=== PATIENT | female | born 1965 | race American Indian/Alaskan Native ===

== ENCOUNTER 2016-10-29 08:20 | Outpatient (CLI) | payer MEDICARE ==
[2016-10-29] MEDS ORDERED: XYLOCAINE TOPICAL 4% TP ONE ×2 (08:41→15:00)
[2016-10-29] MEDS ORDERED: SANTYL TP ONE ×2 (10:40→15:00)
== END 2016-10-29 08:21 | disposition home or self-care (01) ==
LOC: WOUND 08:20
PROVIDERS: ATTEND Podiatrist
DX: E11.622 Type 2 diabetes mellitus with other skin ulcer (principal); L97.912 Non-pressure chronic ulcer of unspecified part of right lower leg with fat layer exposed; L97.422 Non-pressure chronic ulcer of left heel and midfoot with fat layer exposed; E11.40 Type 2 diabetes mellitus with diabetic neuropathy, unspecified; I10 Essential (primary) hypertension; G83.9 Paralytic syndrome, unspecified; F17.210 Nicotine dependence, cigarettes, uncomplicated; Z86.73 Personal history of transient ischemic attack (TIA), and cerebral infarction without residual deficits
CPT/HCPCS: 11042; 11045; G0463; 99213

== ENCOUNTER 2016-11-05 10:18 | Outpatient (CLI) | payer MEDICARE ==
[2016-11-05] MEDS ORDERED: XYLOCAINE 1%/ EPI 1:100,000 INFILTRATI ONE (10:56)
[2016-11-05] MEDS ORDERED: XYLOCAINE TOPICAL 4% TP ONE ×2 (10:56→11:11)
[2016-11-05] MEDS ORDERED: SANTYL TP ONE (11:53)
[2016-11-05] MEDS ORDERED: NACL 0.9% IR PRN (16:07)
== END 2016-11-05 10:19 | disposition home or self-care (01) ==
LOC: WOUND 10:18
PROVIDERS: ATTEND Podiatrist
DX: E11.622 Type 2 diabetes mellitus with other skin ulcer (principal); L97.812 Non-pressure chronic ulcer of other part of right lower leg with fat layer exposed; E11.621 Type 2 diabetes mellitus with foot ulcer; L97.422 Non-pressure chronic ulcer of left heel and midfoot with fat layer exposed; E11.40 Type 2 diabetes mellitus with diabetic neuropathy, unspecified; I10 Essential (primary) hypertension; G83.9 Paralytic syndrome, unspecified; F17.210 Nicotine dependence, cigarettes, uncomplicated; Z86.73 Personal history of transient ischemic attack (TIA), and cerebral infarction without residual deficits

== ENCOUNTER → 2016-11-12 | Emergency (ER) | payer MEDICARE ==
[~2016-11-12] MED LIST: SANTYL TP SCH; XYLOCAINE TOPICAL 4% TP ONE
== END ==
LOC: WOUND 10:39
DX: Z53.21 Procedure and treatment not carried out due to patient leaving prior to being seen by health care provider (principal)

== ENCOUNTER 2016-11-19 11:50 | Outpatient (CLI) | payer MEDICARE ==
[2016-11-19] MEDS ORDERED: XYLOCAINE TOPICAL 4% TP ONE ×2 (12:50→15:23)
[2016-11-19] MEDS ORDERED: XYLOCAINE TOPICAL 2% ONE (13:20)
[2016-11-19] MEDS ORDERED: SANTYL TP ONE (13:21)
[2016-11-19] MEDS ORDERED: XYLOCAINE TOPICAL 2% TP ONE (15:29)
== END 2016-11-19 11:51 | disposition home or self-care (01) ==
LOC: WOUND 11:50
PROVIDERS: ATTEND Podiatrist
DX: E11.621 Type 2 diabetes mellitus with foot ulcer (principal); L97.422 Non-pressure chronic ulcer of left heel and midfoot with fat layer exposed; E11.622 Type 2 diabetes mellitus with other skin ulcer; L97.812 Non-pressure chronic ulcer of other part of right lower leg with fat layer exposed; E11.40 Type 2 diabetes mellitus with diabetic neuropathy, unspecified; G83.9 Paralytic syndrome, unspecified; I10 Essential (primary) hypertension; F17.210 Nicotine dependence, cigarettes, uncomplicated; Z86.73 Personal history of transient ischemic attack (TIA), and cerebral infarction without residual deficits
CPT/HCPCS: 97607

== ENCOUNTER 2016-11-24 16:11 | Emergency (ER) | payer MEDICARE ==
[2016-11-24] MEDS ORDERED: D50W (25GM) IV ONE ×2 (16:18→16:27)
[2016-11-24 16:27] VITALS: BP 137/57
--- NOTE | 2016-11-24 17:25 | Emergency Department Report ---
ED General Adult HPI - General Chief complaint: Hypoglycemia Stated complaint: HYPERGLYCEMIA Time Seen by Provider: 11/24/16 16:44 Source: patient, EMS (ems notes not available at time of chart dictation), RN notes reviewed Mode of arrival: Stretcher Limitations: Physical Limitation, Other (patient is a poor historian) - History of Present Illness Initial comments: This is a 51-year-old female. She is previously unknown to me. Has a past medical history of hypertension, diabetes, migraine, seizure disorder, CK D stage III, dyslipidemia, CVA with residual left-sided hemiparesis, chronic dysarthria, for PEG tube placement. Patient is brought to the hospital by EMS. As per EMS documentation, they received a call for the patient laying supine on her bed unconscious with a GCS of 8. No indication of trauma. Blood sugar level in the field was 33. EMS unable to establish IV access. Upon arrival to the ER, patient is found to be hypoglycemic again. The nurse establish IV access, gave an amp of D50. Patient now talking, denies all complaints. As per verbal report from EMS to nurse, the patient's indicated that the patient had a blood sugar over 300 this morning, gave 30 units of insulin. EMS indicated that the patient has not been eating since then. The patient denies headache, neck pain, chest pain, abdominal pain and shortness of breath. Patient cannot recall list of medications. The person who lives with the patient is Mr. Ortiz Melendez; [phone]. Currently, the nurse is attempting to contact him to obtain a medication list and to obtaining collateral history. -: Gradual Severity scale (0 -10): 0 Consistency: now resolved Improves with: medication Worsens with: other (not eating) Associated Symptoms: confusion (now resolved) - Related Data Home Medications Medication Instructions Recorded Confirmed Last Taken Amlodipine Besylate [Norvasc] 10 mg PO DAILY 07/17/14 11/24/16 09/17/14 10 Pregabalin [Lyrica] 150 mg PO BID 07/17/14 11/24/16 09/19/14 75 levETIRAcetam [Keppra XR TAB] 500 mg PO Q12HR 07/17/14 11/24/16 09/19/14 500 Aspirin [Aspirin TAB] 325 mg PO DAILY 03/29/15 11/24/16 Unknown Ascorbic Acid [Vitamin C] 500 mg PO QDAY 11/24/16 11/24/16 Unknown AtorvaSTATin [Lipitor] 20 mg PO QHS 11/24/16 11/24/16 Unknown Bumetanide [Bumex] 1 mg PO BID 11/24/16 11/24/16 Unknown Carvedilol [Coreg] 12.5 mg PO BID 11/24/16 11/24/16 Unknown Ferrous Sulfate [Feosol] 325 mg PO QDAY 11/24/16 11/24/16 Unknown Insulin Aspart Prot/Aspart 25 units SQ QAM 11/24/16 11/24/16 Unknown [Novolog Mix 70/30] Insulin Glargine [Lantus] 30 unit SUB-Q QHS 11/24/16 11/24/16 Unknown Sevelamer Carbonate [Renvela] 800 mg PO TIDWM 11/24/16 11/24/16 Unknown Allergies Allergy/AdvReac Type Severity Reaction Status Date / Time No Known Allergies Allergy Verified 09/25/13 14:52 ED Review of Systems ROS: Stated complaint: HYPERGLYCEMIA Other details as noted in HPI Constitutional: malaise. denies: fever Eyes: denies: eye discharge ENT: denies: epistaxis Respiratory: denies: cough Cardiovascular: denies: chest pain Gastrointestinal: denies: abdominal pain Genitourinary: denies: dysuria Musculoskeletal: as per HPI Skin: as per HPI Neurological: weakness (chronic) Psychiatric: as per HPI Hematological/Lymphatic: as per HPI ED Past Medical Hx - Past Medical History Previous Medical History?: Yes Hx Hypertension: Yes Hx CVA: Yes Hx Congestive Heart Failure: No Hx Diabetes: Yes Hx Headaches / Migraines: Yes Hx Seizures: Yes Hx Asthma: No - Surgical History Past Surgical History?: Yes Additional Surgical History: Gastric feeding tube - Social History Smoking Status: Unknown if ever smoked Substance Use Type: None - Medications Home Medications: Home Medications Medication Instructions Recorded Confirmed Last Taken Type Amlodipine Besylate [Norvasc] 10 mg PO DAILY 07/17/14 11/24/16 09/17/14 History 10 Pregabalin [Lyrica] 150 mg PO BID 07/17/14 11/24/16 09/19/14 History 75 levETIRAcetam [Keppra XR TAB] 500 mg PO Q12HR 07/17/14 11/24/1615 History 500 Aspirin [Aspirin TAB] 325 mg PO DAILY 03/29/15 11/24/16 Unknown History Ascorbic Acid [Vitamin C] 500 mg PO QDAY 11/24/16 11/24/16 Unknown History AtorvaSTATin [Lipitor] 20 mg PO QHS 11/24/16 11/24/16 Unknown History Bumetanide [Bumex] 1 mg PO BID 11/24/16 11/24/16 Unknown History Carvedilol [Coreg] 12.5 mg PO BID 11/24/16 11/24/16 Unknown History Ferrous Sulfate [Feosol] 325 mg PO QDAY 11/24/16 11/24/16 Unknown History Insulin Aspart Prot/Aspart 25 units SQ QAM 11/24/16 11/24/16 Unknown History [Novolog Mix 70/30] Insulin Glargine [Lantus] 30 unit SUB-Q QHS 11/24/16 11/24/16 Unknown History Sevelamer Carbonate [Renvela] 800 mg PO TIDWM 11/24/16 11/24/16 Unknown History ED Physical Exam - General Limitations: Physical Limitation (patient has chronic hemiparesis left upper extremity, left lower extremity) General appearance: alert, in no apparent distress, obese, other (patient is alert to name. Follows commands.) - Head Head exam: Present: atraumatic, normocephalic - Eye Eye exam: Present: normal appearance, EOMI - ENT ENT exam: Present: normal exam, normal orophraynx, mucous membranes moist, normal external ear exam - Neck Neck exam: Present: normal inspection, full ROM. Absent: tenderness, meningismus - Respiratory Respiratory exam: Present: normal lung sounds bilaterally. Absent: respiratory distress, wheezes, rales, rhonchi, stridor, decreased breath sounds - Cardiovascular Cardiovascular Exam: Present: regular rate, normal rhythm, normal heart sounds. Absent: bradycardia, tachycardia, irregular rhythm, systolic murmur, diastolic murmur, rubs, gallop - GI/Abdominal GI/Abdominal exam: Present: soft, normal bowel sounds. Absent: distended, tenderness, guarding, rebound, rigid, pulsatile mass - Extremities Exam Extremities exam: Present: normal capillary refill, other (there is a wound VAC which is chronic noted in the right lower extremity on the anterior staley. The left heel has an ulcer which is mild purulent drainage.). Absent: full ROM, calf tenderness - Back Exam Back exam: Present: full ROM. Absent: tenderness, CVA tenderness (R), CVA tenderness (L), muscle spasm, paraspinal tenderness, vertebral tenderness - Neurological Exam Neurological exam: Present: alert, oriented X3, motor sensory deficit (chronic weakness left upper extremity, left lower extremity) - Psychiatric Psychiatric exam: Present: normal affect, normal mood - Skin Skin exam: Present: warm, dry, intact, normal color. Absent: rash ED Course Vital Signs 11/24/16 11/24/16 11/24/16 16:20 16:31 19:33 Temperature 96.4 F L 97.6 F Pulse Rate 67 Respiratory 14 14 Rate Blood Pressure 137/57 O2 Sat by Pulse 91 97 Oximetry - Reevaluation(s) Reevaluation #1: 11/24/16 17:35 Differential diagnosis: Pneumonia, urinary tract infection, electrolyte derangement, medication side effect, in adequate oral intake Assessment and plan: 51-year-old female with resolved hypoglycemia. The most likely etiology is poor oral intake. Her chest x-ray is not consistent with pneumonia. The patient is following up with outpatient wound care for her bilateral lower extremity wounds and ulcers. She lives at home with an individual who is able to feed her and administer medicine. Currently, the nurse is attempting to obtain outpatient medication list, and the nurses feeding the patient. The patient ate a whole meal tray without difficulty. Reevaluation #2: 11/24/16 18:52 Na: 146 K: 3.7 Cl: 104.5 Reevaluation #3: 11/24/16 19:45 reassessed. repeat vitals wnl. Repeat Accu-Chek within normal limits. Patient will be discharged with her male psychiatric assistant, Mr. Melendez who feels comfortable to watch her closely at home. Return precautions were extensively reviewed. ED Medical Decision Making - Lab Data Result diagrams: 11/24/16 17:14 11/24/16 17:14 Vital Signs 11/24/16 11/24/16 16:20 16:31 Temperature 96.4 F L Pulse Rate 67 Respiratory 14 14 Rate Blood Pressure 137/57 O2 Sat by Pulse 91 97 Oximetry Labs 11/24/16 16:36 POC Glucose 126 H - Radiology Data Radiology results: image reviewed interpreted by me: X-ray of the chest is negative for acute disease. Critical care attestation.: If time is entered above; I have spent that time in minutes in the direct care of this critically ill patient, excluding procedure time. ED Disposition Clinical Impression: Hypoglycemia Disposition: DISCHARGED TO HOME OR SELFCARE Is pt being admited?: No Does the pt Need Aspirin: No Condition: Stable Instructions: Diabetic Hypoglycemia (ED) Additional Instructions: Please continue current outpatient medications. Follow up with a primary care doctor within the next week. Follow up at the [facility] as directed. Make certain to not take insulin if you have not eaten. Return to the ER right away with fevers or chills, lethargy, chest pain, shortness of breath, intractable nausea or vomiting, inability to tolerate liquid feeds. Referrals: PRIMARY CARE, [Primary Care Provider] - 3-5 Days WALLACE GARZA MD, PHD [Staff Physician] - 3-5 Days
[2016-11-24 17:42] LABS: Basophils % (Auto) 0.9 % (0.0-1.8); Eosinophils % (Auto) 2.7 % (0.0-4.3); Hematocrit 35.2 % (30.3-42.9); Hemoglobin 10.8 gm/dl (10.1-14.3); Mean Corpuscular HGB Conc 31 % (30-34); Mean Corpuscular Volume 83 fl (79-97); Platelet Count 290 K/mm3 (140-440); Red Blood Count 4.27 M/mm3 (3.65-5.03); White Blood Count 11.9 K/mm3 (4.5-11.0)
[2016-11-24 17:43] LABS: Mean Corpuscular Hemoglobin 25 pg (28-32)
[2016-11-24 17:45] LABS: BUN/Creatinine Ratio 9.09; Calcium 9.3 mg/dL (8.4-10.2); Chloride 104.5 mmol/L (98-107); Potassium 3.7 mmol/L (3.6-5.0)
[2016-11-24 18:59] LABS: Bacteria,Urine 1+ /HPF (Negative); Bilirubin,Urine NEG (Negative); Blood,Urine NEG (Negative); Ketones,Urine NEG (Negative); Leukocyte Esterase,Urine NEG (Negative); Mucus,Urine FEW /HPF; Nitrite,Urine NEG (Negative); RBC,Urine < 1.0 /HPF (0.0-6.0); Urobilinogen,Urine < 2.0 mg/dL (<2.0)
--- NOTE | 2016-11-24 20:40 | XRay Report ---
FINAL REPORT EXAM: XR CHEST 1V AP HISTORY: poss aspiration TECHNIQUE: AP portable view of the chest. PRIORS: None. FINDINGS: The cardiomediastinal silhouette appears normal. The lungs are clear. The bones and soft tissues are unremarkable. IMPRESSION: No evidence of acute cardiopulmonary disease.
== END 2016-11-24 22:38 | disposition home or self-care (01) ==
LOC: ED 16:11
DX: E11.649 Type 2 diabetes mellitus with hypoglycemia without coma (principal); I12.9 Hypertensive chronic kidney disease with stage 1 through stage 4 chronic kidney disease, or unspecified chronic kidney disease; N18.3 Chronic kidney disease, stage 3 (moderate); G43.909 Migraine, unspecified, not intractable, without status migrainosus; Z86.73 Personal history of transient ischemic attack (TIA), and cerebral infarction without residual deficits; G40.909 Epilepsy, unspecified, not intractable, without status epilepticus; E78.5 Hyperlipidemia, unspecified; R47.1 Dysarthria and anarthria; Z76.82 Awaiting organ transplant status; Z79.4 Long term (current) use of insulin
CPT/HCPCS: 36415; 51701; 71010; 80048; 81001; 82962; 85025; 96374

== ENCOUNTER 2016-11-26 10:44 | Outpatient (CLI) | payer MEDICARE ==
[2016-11-26] MEDS ORDERED: XYLOCAINE TOPICAL 4% TP ONE (11:53)
[2016-11-26] MEDS ORDERED: SANTYL TP ONE (12:03)
== END 2016-11-26 10:45 | disposition home or self-care (01) ==
LOC: WOUND 10:44
PROVIDERS: ATTEND Podiatrist
DX: E11.622 Type 2 diabetes mellitus with other skin ulcer (principal); L97.511 Non-pressure chronic ulcer of other part of right foot limited to breakdown of skin; E11.621 Type 2 diabetes mellitus with foot ulcer; L97.421 Non-pressure chronic ulcer of left heel and midfoot limited to breakdown of skin; I10 Essential (primary) hypertension; E11.40 Type 2 diabetes mellitus with diabetic neuropathy, unspecified; F17.210 Nicotine dependence, cigarettes, uncomplicated; Z86.73 Personal history of transient ischemic attack (TIA), and cerebral infarction without residual deficits
CPT/HCPCS: 97608

== ENCOUNTER 2016-12-03 10:02 | Outpatient (CLI) | payer MEDICARE ==
[2016-12-03] MEDS ORDERED: XYLOCAINE TOPICAL 4% TP ONE ×2 (11:07→15:00)
[2016-12-03] MEDS ORDERED: SANTYL TP ONE (11:19)
== END 2016-12-03 10:03 | disposition home or self-care (01) ==
LOC: WOUND 10:02
PROVIDERS: ATTEND Podiatrist
DX: E11.622 Type 2 diabetes mellitus with other skin ulcer (principal); L97.812 Non-pressure chronic ulcer of other part of right lower leg with fat layer exposed; E11.621 Type 2 diabetes mellitus with foot ulcer; L97.422 Non-pressure chronic ulcer of left heel and midfoot with fat layer exposed; E11.40 Type 2 diabetes mellitus with diabetic neuropathy, unspecified; G83.9 Paralytic syndrome, unspecified; H53.8 Other visual disturbances; I10 Essential (primary) hypertension; L89.611 Pressure ulcer of right heel, stage 1; F17.210 Nicotine dependence, cigarettes, uncomplicated; Z86.73 Personal history of transient ischemic attack (TIA), and cerebral infarction without residual deficits
CPT/HCPCS: 87075; 87076; 87116; 87186

== ENCOUNTER 2016-12-10 10:31 | Outpatient (CLI) | payer MEDICARE ==
[2016-12-10] MEDS ORDERED: XYLOCAINE TOPICAL 2% TP ONE ×2 (11:10→13:50)
[2016-12-10] MEDS ORDERED: SANTYL TP ONE (11:43)
== END 2016-12-10 10:32 | disposition home or self-care (01) ==
LOC: WOUND 10:31
PROVIDERS: ATTEND Podiatrist
DX: E11.621 Type 2 diabetes mellitus with foot ulcer (principal); L97.422 Non-pressure chronic ulcer of left heel and midfoot with fat layer exposed; L97.812 Non-pressure chronic ulcer of other part of right lower leg with fat layer exposed; E11.40 Type 2 diabetes mellitus with diabetic neuropathy, unspecified; E11.622 Type 2 diabetes mellitus with other skin ulcer; G83.9 Paralytic syndrome, unspecified; I10 Essential (primary) hypertension; F17.210 Nicotine dependence, cigarettes, uncomplicated; Z86.73 Personal history of transient ischemic attack (TIA), and cerebral infarction without residual deficits

== ENCOUNTER 2016-12-16 12:50 | Outpatient (CLI) | payer MEDICARE ==
--- NOTE | 2016-12-16 14:13 | XRay Report ---
LEFT CALCANEUS, 2 VIEWS History: Left heel ulcer, pain. Findings: Shallow ulceration is suspected in the left heel region. There is no obvious soft tissue gas or foreign body. The bony structures are severely demineralized. There is no evidence for fracture or osteomyelitis. Diffuse vascular calcifications are noted. Impression: Soft tissue findings as described above. Osteopenia. No evidence for osteomyelitis.
== END 2016-12-16 12:51 | disposition home or self-care (01) ==
LOC: XRAY 12:50
PROVIDERS: ATTEND Podiatrist
DX: L97.429 Non-pressure chronic ulcer of left heel and midfoot with unspecified severity (principal); M85.88 Other specified disorders of bone density and structure, other site

== ENCOUNTER 2016-12-24 10:51 | Outpatient (CLI) | payer MEDICARE ==
[2016-12-24] MEDS ORDERED: XYLOCAINE TOPICAL 4% TP ONE (11:50)
== END 2016-12-24 10:52 | disposition home or self-care (01) ==
LOC: WOUND 10:51
PROVIDERS: ATTEND Podiatrist
DX: E11.621 Type 2 diabetes mellitus with foot ulcer (principal); L97.422 Non-pressure chronic ulcer of left heel and midfoot with fat layer exposed; E11.622 Type 2 diabetes mellitus with other skin ulcer; L97.812 Non-pressure chronic ulcer of other part of right lower leg with fat layer exposed; E11.40 Type 2 diabetes mellitus with diabetic neuropathy, unspecified; G83.9 Paralytic syndrome, unspecified; I10 Essential (primary) hypertension; F17.210 Nicotine dependence, cigarettes, uncomplicated; Z86.73 Personal history of transient ischemic attack (TIA), and cerebral infarction without residual deficits
CPT/HCPCS: 97608

== ENCOUNTER 2017-01-04 10:56 | Outpatient (CLI) | payer MEDICARE ==
[2017-01-04] MEDS ORDERED: XYLOCAINE TOPICAL 4% TP ONE ×2 (11:36→14:30)
== END 2017-01-04 10:57 | disposition home or self-care (01) ==
LOC: WOUND 10:56
PROVIDERS: ATTEND Podiatrist
DX: E11.622 Type 2 diabetes mellitus with other skin ulcer (principal); E11.621 Type 2 diabetes mellitus with foot ulcer; L97.811 Non-pressure chronic ulcer of other part of right lower leg limited to breakdown of skin; L97.422 Non-pressure chronic ulcer of left heel and midfoot with fat layer exposed; E11.40 Type 2 diabetes mellitus with diabetic neuropathy, unspecified; F17.210 Nicotine dependence, cigarettes, uncomplicated; I10 Essential (primary) hypertension; Z86.73 Personal history of transient ischemic attack (TIA), and cerebral infarction without residual deficits
CPT/HCPCS: 97608

== ENCOUNTER 2017-01-21 11:09 | Outpatient (CLI) | payer MEDICARE ==
[2017-01-21] MEDS ORDERED: XYLOCAINE TOPICAL 4% TP ONE ×2 (11:27→11:34)
== END 2017-01-21 11:10 | disposition home or self-care (01) ==
LOC: WOUND 11:09
PROVIDERS: ATTEND Podiatrist
DX: E11.622 Type 2 diabetes mellitus with other skin ulcer (principal); E11.621 Type 2 diabetes mellitus with foot ulcer; L97.812 Non-pressure chronic ulcer of other part of right lower leg with fat layer exposed; L97.422 Non-pressure chronic ulcer of left heel and midfoot with fat layer exposed; E11.40 Type 2 diabetes mellitus with diabetic neuropathy, unspecified; G83.9 Paralytic syndrome, unspecified; I10 Essential (primary) hypertension; F17.200 Nicotine dependence, unspecified, uncomplicated; Z86.73 Personal history of transient ischemic attack (TIA), and cerebral infarction without residual deficits
CPT/HCPCS: 97608

== ENCOUNTER 2017-02-04 13:17 | Outpatient (CLI) | payer MEDICARE ==
[2017-02-04] MEDS ORDERED: XYLOCAINE TOPICAL 4% TP ONE (13:56)
[2017-02-04] MEDS ORDERED: THERMAZENE 50 GRAM TP ONE (14:25)
== END 2017-02-04 13:18 | disposition home or self-care (01) ==
LOC: WOUND 13:17
PROVIDERS: ATTEND Podiatrist
DX: E11.621 Type 2 diabetes mellitus with foot ulcer (principal); T22.00XA Burn of unspecified degree of shoulder and upper limb, except wrist and hand, unspecified site, initial encounter; L97.422 Non-pressure chronic ulcer of left heel and midfoot with fat layer exposed; E11.622 Type 2 diabetes mellitus with other skin ulcer; L97.812 Non-pressure chronic ulcer of other part of right lower leg with fat layer exposed; E11.40 Type 2 diabetes mellitus with diabetic neuropathy, unspecified; G83.9 Paralytic syndrome, unspecified; I10 Essential (primary) hypertension; E11.29 Type 2 diabetes mellitus with other diabetic kidney complication; F17.200 Nicotine dependence, unspecified, uncomplicated; Z86.73 Personal history of transient ischemic attack (TIA), and cerebral infarction without residual deficits; X08.8XXA Exposure to other specified smoke, fire and flames, initial encounter; Y93.89 Activity, other specified; Y92.89 Other specified places as the place of occurrence of the external cause; Y99.8 Other external cause status
CPT/HCPCS: 97605

== ENCOUNTER 2017-02-11 12:56 | Outpatient (CLI) | payer MEDICARE ==
[2017-02-11] MEDS ORDERED: XYLOCAINE TOPICAL 4% TP ONE ×2 (13:33→15:28)
== END 2017-02-11 12:57 | disposition home or self-care (01) ==
LOC: WOUND 12:56
PROVIDERS: ATTEND Podiatrist
DX: E11.622 Type 2 diabetes mellitus with other skin ulcer (principal); L97.812 Non-pressure chronic ulcer of other part of right lower leg with fat layer exposed; E11.621 Type 2 diabetes mellitus with foot ulcer; L97.422 Non-pressure chronic ulcer of left heel and midfoot with fat layer exposed; E11.40 Type 2 diabetes mellitus with diabetic neuropathy, unspecified; H53.8 Other visual disturbances; G83.9 Paralytic syndrome, unspecified; I10 Essential (primary) hypertension; F17.200 Nicotine dependence, unspecified, uncomplicated; Z86.73 Personal history of transient ischemic attack (TIA), and cerebral infarction without residual deficits
CPT/HCPCS: 97608

== ENCOUNTER 2017-02-25 12:40 | Outpatient (CLI) | payer MEDICARE | END 2017-02-25 12:41 | disposition home or self-care (01) | LOC: WOUND 12:40 | PROVIDERS: ATTEND Podiatrist | DX: E11.622 Type 2 diabetes mellitus with other skin ulcer (principal); L97.812 Non-pressure chronic ulcer of other part of right lower leg with fat layer exposed; E11.621 Type 2 diabetes mellitus with foot ulcer; L97.422 Non-pressure chronic ulcer of left heel and midfoot with fat layer exposed; E11.40 Type 2 diabetes mellitus with diabetic neuropathy, unspecified; G83.9 Paralytic syndrome, unspecified; I10 Essential (primary) hypertension; H53.8 Other visual disturbances; F17.200 Nicotine dependence, unspecified, uncomplicated; Z86.73 Personal history of transient ischemic attack (TIA), and cerebral infarction without residual deficits ==

== ENCOUNTER 2017-03-07 23:51 | Inpatient (IN) | payer MEDICARE ==
[2017-03-08] MEDS ORDERED: PERCOCET 5/325 PO ONE (00:58)
[2017-03-08 01:36] LABS: Calcium 9.8 mg/dL (8.4-10.2); Chloride 100.7 mmol/L (98-107); Potassium 3.5 mmol/L (3.6-5.0)
[2017-03-08 01:37] LABS: Eosinophils % (Auto) 9.1 % (0.0-4.3); Hematocrit 33.6 % (30.3-42.9); Hemoglobin 10.6 gm/dl (10.1-14.3); Mean Corpuscular HGB Conc 32 % (30-34); Mean Corpuscular Hemoglobin 26 pg (28-32); Mean Corpuscular Volume 82 fl (79-97); Platelet Count 192 K/mm3 (140-440); Red Blood Count 4.08 M/mm3 (3.65-5.03); Red Cell Distribution Width 17.3 % (13.2-15.2); White Blood Count 12.1 K/mm3 (4.5-11.0)
[2017-03-08 02:54] LABS: INR 0.88 (0.87-1.13)
--- NOTE | 2017-03-08 04:49 | Emergency Department Report ---
ED Chest Pain HPI - General Chief Complaint: Chest Pain Stated Complaint: CHEST PAIN/L ARM PAIN Source: patient, family, EMS Mode of arrival: Stretcher Limitations: Physical Limitation - History of Present Illness Initial Comments: 51-year-old female female with a past medical history of multiple medical problems including morbid obesity, history of "TN", history of DVT in 2010, CVA with residual left-sided deficits, diabetes, hypertension, and seizures presents to the hospital with complaints of chest pain. Patient have an anterior chest pain for the past one week. Sharp, reproducible by palpation and movement. Pain is moderate in intensity. Mild shortness of breath reported. No complains of nausea, vomiting, or diaphoresis. Patient also complains of left shoulder pain. Severity scale (0 -10): 7 - Related Data Home Medications Medication Instructions Recorded Confirmed Last Taken Amlodipine Besylate [Norvasc] 10 mg PO DAILY 07/17/14 11/24/16 09/17/14 10 Pregabalin [Lyrica] 150 mg PO BID 07/17/14 11/24/16 09/19/14 75 levETIRAcetam [Keppra XR TAB] 500 mg PO Q12HR 07/17/14 11/24/16 09/19/14 500 Aspirin [Aspirin TAB] 325 mg PO DAILY 03/29/15 11/24/16 Unknown Ascorbic Acid [Vitamin C] 500 mg PO QDAY 11/24/16 11/24/16 Unknown AtorvaSTATin [Lipitor] 20 mg PO QHS 11/24/16 11/24/16 Unknown Bumetanide [Bumex] 1 mg PO BID 11/24/16 11/24/16 Unknown Carvedilol [Coreg] 12.5 mg PO BID 11/24/16 11/24/16 Unknown Ferrous Sulfate [Feosol] 325 mg PO QDAY 11/24/16 11/24/16 Unknown Insulin Aspart Prot/Aspart(Nf) 25 units SQ QAM 11/24/16 11/24/16 Unknown [Novolog Mix 70/30] Insulin Glargine [Lantus] 30 unit SUB-Q QHS 11/24/16 11/24/16 Unknown Sevelamer Carbonate [Renvela] 800 mg PO TIDWM 11/24/16 11/24/16 Unknown Allergies Allergy/AdvReac Type Severity Reaction Status Date / Time No Known Allergies Allergy Verified 09/25/13 14:52 Heart Score - HEART Score History: Slightly suspicious EKG: Normal Age: 45-65 Risk factors: > 3 risk factors or hx of atherosclerotic disease Troponin: 1-3x normal limit HEART Score: 4 ED Review of Systems ROS: Stated complaint: CHEST PAIN/L ARM PAIN Other details as noted in HPI Comment: All other systems reviewed and negative Other: Constitutional: No fevers chills Eyes: No eye pain visual changes ENT: No ear pain or throat pain Neck: Denies pain Respiratory: Denies cough Cardiovascular: Denies palpitations, syncope GI: Denies abdominal pain, nausea, vomiting, diarrhea : Denies dysuria Musculoskeletal: Denies back pain, joint swelling Skin: Denies rash, lesions, erythema Neurologic: Denies headache Psychiatric: Denies suicidal ideation, hallucinations ED Past Medical Hx - Past Medical History Previous Medical History?: Yes Hx Hypertension: Yes Hx CVA: Yes Hx Congestive Heart Failure: No Hx Diabetes: Yes Hx Headaches / Migraines: Yes Hx Seizures: Yes Hx Asthma: No - Surgical History Past Surgical History?: Yes Additional Surgical History: Gastric feeding tube - Social History Smoking Status: Never Smoker Substance Use Type: None - Medications Home Medications: Home Medications Medication Instructions Recorded Confirmed Last Taken Type Amlodipine Besylate [Norvasc] 10 mg PO DAILY 07/17/14 11/24/16 09/17/14 History 10 Pregabalin [Lyrica] 150 mg PO BID 07/17/14 11/24/16 09/19/14 History 75 levETIRAcetam [Keppra XR TAB] 500 mg PO Q12HR 07/17/14 11/24/16 09/19/14 History 500 Aspirin [Aspirin TAB] 325 mg PO DAILY 03/29/15 11/24/16 Unknown History Ascorbic Acid [Vitamin C] 500 mg PO QDAY 11/24/16 11/24/16 Unknown History AtorvaSTATin [Lipitor] 20 mg PO QHS 11/24/16 11/24/16 Unknown History Bumetanide [Bumex] 1 mg PO BID 11/24/16 11/24/16 Unknown History Carvedilol [Coreg] 12.5 mg PO BID 11/24/16 11/24/16 Unknown History Ferrous Sulfate [Feosol] 325 mg PO QDAY 11/24/16 11/24/16 Unknown History Insulin Aspart Prot/Aspart(Nf) 25 units SQ QAM 11/24/16 11/24/16 Unknown History [Novolog Mix 70/30] Insulin Glargine [Lantus] 30 unit SUB-Q QHS 11/24/16 11/24/16 Unknown History Sevelamer Carbonate [Renvela] 800 mg PO TIDWM 11/24/16 11/24/16 Unknown History ED Physical Exam - General Limitations: Physical Limitation - Other Other exam information: General: No limitations, patient is alert in no acute distress Head exam: Atraumatic, normocephalic Eyes exam: Normal appearance, pupils equal reactive to light ENT: Moist mucous membrane, normal oropharynx Neck exam: Normal inspection, full range of motion Respiratory exam: Clear to auscultation bilateral, no wheezes, rales, crackles Cardiovascular: Normal rate and rhythm, sternal and right-sided chest wall tenderness Abdomen: Soft, nondistended, and nontender, with normal bowel sounds, no rebound, or guarding Extremity: Full range of motion, shoulder tender anteriorly and with movement. Left arm generalized edema. Right arm edema appears to be greater than the left Back: Normal Inspection, full range of motion, no tenderness Neurologic: Alert, oriented x3, cranial nerves intact, left arm and left leg paralysis Psychiatric: normal affect, normal mood Skin: Wound to right staley and left foot ED Course Vital Signs 03/07/17 03/08/17 03/08/17 23:58 00:01 00:11 Temperature Pulse Rate 80 80 Respiratory 16 13 12 Rate Blood Pressure 143/64 143/64 Blood Pressure [Right] O2 Sat by Pulse 94 95 Oximetry 03/08/17 03/08/17 03/08/17 00:15 00:21 00:31 Temperature 98.6 F Pulse Rate 78 81 80 Respiratory 20 16 18 Rate Blood Pressure 155/76 111/79 Blood Pressure 143/64 [Right] O2 Sat by Pulse 95 95 95 Oximetry 03/08/17 03/08/17 03/08/17 00:41 00:51 01:01 Temperature Pulse Rate 77 78 76 Respiratory 17 13 14 Rate Blood Pressure 111/79 119/69 119/69 Blood Pressure [Right] O2 Sat by Pulse 96 96 100 Oximetry 03/08/17 03/08/17 03/08/17 01:05 01:11 01:21 Temperature Pulse Rate 75 75 Respiratory 20 13 13 Rate Blood Pressure 119/69 119/69 Blood Pressure [Right] O2 Sat by Pulse 99 100 Oximetry 03/08/17 03/08/17 03/08/17 01:31 01:41 01:51 Temperature Pulse Rate 78 78 74 Respiratory 14 14 12 Rate Blood Pressure 119/69 119/69 119/69 Blood Pressure [Right] O2 Sat by Pulse 100 98 100 Oximetry 03/08/17 03/08/17 03/08/17 02:01 02:11 02:21 Temperature Pulse Rate 74 70 74 Respiratory 11 L 11 L 10 L Rate Blood Pressure 119/69 119/69 119/69 Blood Pressure [Right] O2 Sat by Pulse 100 100 100 Oximetry 03/08/17 03/08/17 03/08/17 02:31 02:41 02:51 Temperature Pulse Rate 78 75 76 Respiratory 11 L 10 L 12 Rate Blood Pressure 164/107 164/107 168/87 Blood Pressure [Right] O2 Sat by Pulse 98 100 99 Oximetry 03/08/17 03/08/17 03:01 03:21 Temperature Pulse Rate 72 73 Respiratory 9 L 9 L Rate Blood Pressure 172/79 161/66 Blood Pressure [Right] O2 Sat by Pulse 98 100 Oximetry - Reevaluation(s) Reevaluation #1: 03/08/17 04:58 Percocet provided for pain some improvement in symptoms MELINDA score - Melinda Score Age > 65: (0) No Aspirin use within the Past 7 Days: (1) Yes 3 or more CAD Risk Factors: (1) Yes 2 or more Angina events in past 24 hrs: (1) Yes Known CAD with more than 50% Stenosis: (0) No Elevated Cardiac Markers: (0) No ST Deviation Greater than 0.5mm: (0) No MELINDA Score: 3 ED Medical Decision Making - Lab Data Result diagrams: 03/08/17 00:27 03/08/17 00:27 Lab Results 03/08/17 03/08/17 03/08/17 Range/Units 00:27 00:27 02:18 WBC 12.1 H (4.5-11.0) K/mm3 RBC 4.08 (3.65-5.03) M/mm3 Hgb 10.6 (10.1-14.3) gm/dl Hct 33.6 (30.3-42.9) % MCV 82 (79-97) fl MCH 26 L (28-32) pg MCHC 32 (30-34) % RDW 17.3 H (13.2-15.2) % Plt Count 192 (140-440) K/mm3 Lymph % (Auto) 28.2 (13.4-35.0) % [place] % (Auto) 6.1 (0.0-7.3) % Eos % (Auto) 9.1 H (0.0-4.3) % Baso % (Auto) 1.0 (0.0-1.8) % Lymph # 3.4 (1.2-5.4) K/mm3 [place] # 0.7 (0.0-0.8) K/mm3 Eos # 1.1 H (0.0-0.4) K/mm3 Baso # 0.1 (0.0-0.1) K/mm3 Seg Neutrophils % 55.6 (40.0-70.0) % Seg Neutrophils # 6.7 (1.8-7.7) K/mm3 PT 12.4 (12.2-14.9) Sec. INR 0.88 (0.87-1.13) D-Dimer 572.42 H (0-234) ng/mlDDU Sodium 143 (137-145) mmol/L Potassium 3.5 L (3.6-5.0) mmol/L Chloride 100.7 (98-107) mmol/L Carbon Dioxide 26 (22-30) mmol/L Anion Gap 20 mmol/L BUN 35 H (7-17) mg/dL Creatinine 2.5 H (0.7-1.2) mg/dL Estimated GFR 24 ml/min BUN/Creatinine Ratio 14.00 % Glucose 111 H (65-100) mg/dL Calcium 9.8 (8.4-10.2) mg/dL Troponin T 0.172 H* (0.00-0.029) ng/mL Triglycerides 189 H (2-149) mg/dL Cholesterol 142 (50-199) mg/dL LDL Cholesterol Direct 68 (50-130) mg/dL HDL Cholesterol 37 L (40-59) mg/dL Cholesterol/HDL Ratio 3.83 % - EKG Data -: EKG Interpreted by Me (nsr 80, lad, prolonged qt) - Radiology Data Radiology results: image reviewed (cxr: naf) - Medical Decision Making Attempted to obtain VQ scan given her elevated d-dimer, history of DVT, and chest pain. Despite multiple attempts they were unable to perform V/Q scan due to patient's shoulder with and that she cannot keep her left arm above her head given paralysis. Troponin is elevated which appears to be chronic. I suspect the patient's pain is musculoskeletal since she has reproducible chest wall tenderness. Patient has several cardiac risk factors. No previous stress test on record here. Plan to admit the hospital for further evaluation. - Differential Diagnosis costochondritis, PE, TN, unstable angina Critical Care Time: No Critical care attestation.: If time is entered above; I have spent that time in minutes in the direct care of this critically ill patient, excluding procedure time. ED Disposition Clinical Impression: Chest pain, CKD (chronic kidney disease), Hypertension, History of CVA with residual deficit, Diabetes, Elevated troponin, Elevated d-dimer Disposition: 09 OP ADMIT IP TO THIS HOSP Is pt being admited?: Yes Condition: Stable Time of Disposition: 04:59 (Dr Gutierrez/hosp)
[2017-03-08 05:03] VITALS: BP 147/79
[2017-03-08] MEDS ORDERED: MILK OF MAGNESIA PO PRN (05:46)
[2017-03-08] MEDS ORDERED: D50W (25GM) IV PRN (05:46)
[2017-03-08] MEDS ORDERED: DULCOLAX PR PRN (05:46)
[2017-03-08] MEDS ORDERED: ZOFRAN IV PRN (05:46)
[2017-03-08] MEDS ORDERED: PROVENTIL IH PRN (05:46)
[2017-03-08] MEDS ORDERED: TYLENOL PO PRN (05:46)
[2017-03-08] MEDS ORDERED: PERCOCET 5/325 PO PRN (05:46)
[2017-03-08] MEDS ORDERED: K-DUR PO ONE (06:00)
--- NOTE | 2017-03-08 06:00 | History and Physical Report ---
History of Present Illness Date of examination: 03/08/17 History of present illness: 51-year-old woman with a history of hypertension, diabetes, seizure, chronic kidney disease, hyperlipidemia, CVA, obesity comes emergency room complaints of chest pain that started 1 week ago. Pain is in the epigastric area which she describes often sitting on the chest, intermittent in nature lasting for 5 minutes, intensity 6/10, radiating to the left arm, she cannot identify exacerbating or relieving factors. Admits to shortness breath, no nausea vomiting, diaphoresis or palpitation. Patient was admitted in 2016 for chest pain, she was evaluated by cardiology and she was deemed not a candidate for intervention secondary to multiple comorbidities Patient denies , cough, abdominal pain, hematochezia, dysuria, frequency, focal weakness, dysarthria, fever chills, polydipsia polyuria, hot or cold intolerance , easy bruisability, or rash or bleeding from mucosal membrane, rhinorrhea, epistaxis, earache, tinnitus, blurry vision, eye discharge, anxiety, depression. Other review of systems negative PAST SURGICAL HISTORY: PEG tube placement and removal SOCIAL HISTORY: Smoke 2 cigarettes a day, no alcohol or drugs FAMILY HISTORY: Hypertension Medications and Allergies Allergies Allergy/AdvReac Type Severity Reaction Status Date / Time No Known Allergies Allergy Verified 09/25/13 14:52 Home Medications Medication Instructions Recorded Confirmed Last Taken Type Amlodipine Besylate [Norvasc] 10 mg PO DAILY 07/17/14 11/24/16 09/17/14 History 10 Pregabalin [Lyrica] 150 mg PO BID 07/17/14 11/24/16 09/19/14 History 75 levETIRAcetam [Keppra XR TAB] 500 mg PO Q12HR 07/17/14 11/24/16 09/19/14 History 500 Aspirin [Aspirin TAB] 325 mg PO DAILY 03/29/15 11/24/16 Unknown History Ascorbic Acid [Vitamin C] 500 mg PO QDAY 11/24/16 11/24/16 Unknown History AtorvaSTATin [Lipitor] 20 mg PO QHS 11/24/16 11/24/16 Unknown History Bumetanide [Bumex] 1 mg PO BID 11/24/16 11/24/16 Unknown History Carvedilol [Coreg] 12.5 mg PO BID 11/24/16 11/24/16 Unknown History Ferrous Sulfate [Feosol] 325 mg PO QDAY 11/24/16 11/24/16 Unknown History Insulin Aspart Prot/Aspart(Nf) 25 units SQ QAM 11/24/16 11/24/16 Unknown History [Novolog Mix 70/30] Insulin Glargine [Lantus] 30 unit SUB-Q QHS 11/24/16 11/24/16 Unknown History Sevelamer Carbonate [Renvela] 800 mg PO TIDWM 11/24/16 11/24/16 Unknown History Active Meds: Active Medications Acetaminophen (Tylenol) 650 mg PO Q4H PRN PRN Reason: Pain MILD(1-3)/Fever >100.5/THAYER Albuterol (Proventil) 2.5 mg IH Q3HRT PRN PRN Reason: Shortness Of Breath Bisacodyl (Dulcolax) 10 mg MO QDAY PRN PRN Reason: Constipation unrelieved by MOM Dextrose (D50w (25gm)) 50 ml IV PRN PRN PRN Reason: Hypoglycemia Enoxaparin Sodium (Lovenox) 30 mg SUB-Q QDAY ROWDY Insulin Aspart (Novolog) 0 units SUB-Q ACHS ROWDY PRN Reason: Protocol Magnesium Hydroxide (Milk Of Magnesia) 30 ml PO Q4H PRN PRN Reason: Constipation Ondansetron HCl (Zofran) 4 mg IV Q8H PRN PRN Reason: N/V unrelieved by Reglan Oxycodone/Acetaminophen (Percocet 5/325) 1 tab PO Q6H PRN PRN Reason: Pain, Moderate (4-6) Exam - Physical Exam Narrative exam: Gen. appearance: Patient lying in bed, no apparent distress HEENT: Normocephalic, atraumatic, pupils equally round and reactive to light, extraocular movement intact, and no sclericterus,. No JVD or thyromegaly or nodule,neck supple, no carotid bruit ,mucous membranes moist, no exudate or erythema Heart: S1, S2, regular rate and rhythm Lungs: Clear to auscultation bilaterally, breathing comfortable Abdomen: Positive bowel sounds, nontender, nondistended, no organomegaly Extremity: No edema, cyanosis, clubbing Skin: Extremity wounds, No rash, nodules, warm, dry Neuro: Oriented 3, cranial nerves II-12 intact, speech is fluent, motor and sensory intact - Constitutional Vitals: Temp Pulse Resp BP Pulse Ox 98.6 F 71 7 L 147/79 99 03/08/17 00:15 03/08/17 04:41 03/08/17 04:41 03/08/17 04:41 03/08/17 04:41 Results - Labs CBC & Chem 7: 03/08/17 00:27 03/08/17 00:27 Labs: Abnormal lab results 03/08/17 03/08/17 03/08/17 Range/Units 00:27 00:27 02:18 WBC 12.1 H (4.5-11.0) K/mm3 MCH 26 L (28-32) pg RDW 17.3 H (13.2-15.2) % Eos % (Auto) 9.1 H (0.0-4.3) % Eos # 1.1 H (0.0-0.4) K/mm3 D-Dimer 572.42 H (0-234) ng/mlDDU Potassium 3.5 L (3.6-5.0) mmol/L BUN 35 H (7-17) mg/dL Creatinine 2.5 H (0.7-1.2) mg/dL Glucose 111 H (65-100) mg/dL Troponin T 0.172 H* (0.00-0.029) ng/mL Triglycerides 189 H (2-149) mg/dL HDL Cholesterol 37 L (40-59) mg/dL 03/08/17 Range/Units 05:16 WBC (4.5-11.0) K/mm3 MCH (28-32) pg RDW (13.2-15.2) % Eos % (Auto) (0.0-4.3) % Eos # (0.0-0.4) K/mm3 D-Dimer (0-234) ng/mlDDU Potassium (3.6-5.0) mmol/L BUN (7-17) mg/dL Creatinine (0.7-1.2) mg/dL Glucose (65-100) mg/dL Troponin T 0.157 H* (0.00-0.029) ng/mL Triglycerides (2-149) mg/dL HDL Cholesterol (40-59) mg/dL - Imaging and Cardiology EKG: image reviewed Chest x-ray: image reviewed Assessment and Plan Chest pain with elevated troponin Elevated d-dimer Hypokalemia Hypertension Diabetes type 2 Hyperlipidemia History of CVA Chronic kidney disease Seizure Obesity Lower Extremity wounds Admit to medicine Check cardiac enzymes, echo, consult cardiology Check Doppler of the lower extremity Check fingersticks initiate insulin sliding scale Start morphine, aspirin, continue appropriate outpatient medications Start DVT prophylaxis, replete potassium Consult wound care
--- NOTE | 2017-03-08 07:10 | Admit Criteria Form ---
Admission Criteria Documentation: CHEST PAIN Clinical Indications for Admission to Inpatient Care (Place 'X' for any and all applicable criteria): Admission is indicated for chest pain and ANY ONE of the following(1)(2)(3)(4)(5 ): [ ]I. Angina with acute coronary syndrome (Also use Myocardial Infarction or Angina guideline) [ ]II. Hemodynamic instability [X]III. Angina needing acute intervention as indicated by ALL of the following( 11)(12): [ ]a) Unstable angina is present as indicated by angina that is ANY ONE of the following: [ ]i) New onset [ ]ii) Nocturnal [ ]iii) Prolonged at rest [ ]iv) Progressive [X]b) Angina warrants acute intervention as indicated by ANY ONE of the following: [ ]i) Recurrent angina (e.g, not responding as previously to treatment) [ ]ii) Angina at rest or with low-level activities despite initial medical therapy [ ]iii) New or presumably new ST-segment depression on ECG [ ]iv) Signs or symptoms of heart failure (eg, dyspnea, pulmonary edema) [ ]v) New or worsening mitral regurgitation [ ]vi) Hemodynamic instability [ ]vii) Dangerous arrhythmia (eg, sustained ventricular tachycardia) [ ]viii) History of percutaneous coronary intervention within 6 months [ ]ix) History of coronary artery bypass graft surgery [X]x) MELINDA risk score of 2 or greater[A] [ ]xi) History of Diabetes(14) [ ]xii) High-risk cardiac ischemia findings on noninvasive testing (e.g, echocardiogram, treadmill testing, nuclear scan) [X]xiii) Chronic renal insufficiency (ie, estimated GFR less than 60 mL/min/1.732m) [ ]xiv) Left ventricular ejection fraction less than 40% [ ]IV. Evidence of IN (eg, cardiac biomarkers positive, ST-segment elevation on ECG) also use Myocardial Infarction Criteria Form. [ ]V. Pulmonary edema [ ]. Respiratory distress [ ]VII. Chest pain indicative of serious diagnosis other than coronary artery disease (eg, aortic dissection) [X]VIII. Contraindications and/or Inappropriate clinical situations for Observational Care in patients with Chest Pain, when ANY ONE of the following is required: [ ]a) Patient with risk factor for pulmonary embolism, acute coronary syndrome and myocardial infarction (18) [ ]b) Patient with Pulmonary embolism require an average LOS of 4.3 days, therefore emergency department observation management is inappropriate 18,23 [ ]c) Painful condition/s in the elderly, have the highest rate of recidivism after emergency department observation management (10.8%) 20,21,22 [X]d) Elevated cardiac biomarker requires intensive and exhaustive care (19) [ ]IX. General contraindications and/or Inappropriate clinical situations for Observational Care in patients with Chest Pain, when ANY ONE of the following is required: [ ]a) Prediction of prolongation of LOS based on ANY ONE of the following may be considered as a contraindication for observational care 2, 3, 4, 5, 6, 7, 8, 9, 10, 11 [ ]i) Age > 65 yrs. [ ]ii) Patient arriving by ambulance [ ]iii) Patient with high acuity [ ]iv) Patient requiring vital sign monitoring [ ]v) Patient on IV medication [ ]b) Systolic blood pressures 180mmHg 3,12 [ ]c) Patient with altered mental status including delirium and other alteration of consciousness, (3) [ ]d) Patient whose discharge disposition will be to a [facility] home or rehabilitation home should not be managed in Emergency Department Observation Unit. CMS rule requires 3 days hospital stay before such placement. 3,13 [ ]e) Patient with failure to thrive due to broad array of etiologies 3,16,17 [ ]f) Inability to ambulate 3,14 Extended stay beyond goal length of stay may be needed for (1)(28): [ ]a) Specific condition diagnosed after evaluation (eg, pulmonary embolism, aortic dissection) [ ]b) Unstable angina [ ]c) Continued suspicion of acute coronary syndrome with inability to complete needed cardiac evaluation (eg, patient clinically unable to undergo stress testing) [ ]d) Myocardial infarction (Contents from ANGINA and CHEST PAIN clinical indications for admission to inpatient care have been integrated in this form) The original [employer] content created by [employer] has been revised. The portions of the content which have been revised are identified through the use of italic text or in bold, and [email or web address] has neither reviewed nor approved the modified material. All other unmodified content is copyright [employer]. Please see references footnoted in the original [facility] edition 2016 Admission Criteria Met: Yes
--- NOTE | 2017-03-08 09:28 | XRay Report ---
AP CHEST: HISTORY: chest pain Borderline to mild cardiomegaly is unchanged since 11/24/16. Pulmonary vascularity is within normal limits. The lungs are clear. No pleural effusion or pneumothorax. No thoracic fractures appreciated. IMPRESSION: Borderline to mild cardiomegaly. Lungs clear.
[2017-03-08] MEDS ORDERED: LOVENOX SUB-Q SCH (10:00)
--- NOTE | 2017-03-08 10:21 | Consultation ---
History of Present Illness Consult date: 03/08/17 Consult reason: chest pain History of present illness: Patient was brought to the hospital for the evaluation of chest pain. She did not want to come but her boyfriend called EMS as patient was complaining of retrosternal chest pain radaiting towards her left shoulder. Patient insists that she wants to go home this morning. She states that her pain felt like indigestion and she does not think there is anything wrong with her heart. She does not want any further testing performed. ECG is showing no changes from previous and troponin is noted chronically elevated Past History Past Medical History: diabetes, DVT, hypertension, hyperlipidemia, renal failure , stroke Past Surgical History: Other (s/p PEG tube plaement and removal) Social history: smoking Family history: hypertension Medications and Allergies Allergies Allergy/AdvReac Type Severity Reaction Status Date / Time No Known Allergies Allergy Verified 09/25/13 14:52 Home Medications Medication Instructions Recorded Confirmed Last Taken Type Amlodipine Besylate [Norvasc] 10 mg PO DAILY 07/17/14 11/24/16 09/17/14 History 10 Pregabalin [Lyrica] 150 mg PO BID 07/17/14 11/24/16 09/19/14 History 75 levETIRAcetam [Keppra XR TAB] 500 mg PO Q12HR 07/17/14 11/24/16 09/19/14 History 500 Aspirin [Aspirin TAB] 325 mg PO DAILY 03/29/15 11/24/16 Unknown History Ascorbic Acid [Vitamin C] 500 mg PO QDAY 11/24/16 11/24/16 Unknown History AtorvaSTATin [Lipitor] 20 mg PO QHS 11/24/16 11/24/16 Unknown History Bumetanide [Bumex] 1 mg PO BID 11/24/16 11/24/16 Unknown History Carvedilol [Coreg] 12.5 mg PO BID 11/24/16 11/24/16 Unknown History Ferrous Sulfate [Feosol] 325 mg PO QDAY 11/24/16 11/24/16 Unknown History Insulin Aspart Prot/Aspart(Nf) 25 units SQ QAM 11/24/16 11/24/16 Unknown History [Novolog Mix 70/30] Insulin Glargine [Lantus] 30 unit SUB-Q QHS 11/24/16 11/24/16 Unknown History Sevelamer Carbonate [Renvela] 800 mg PO TIDWM 11/24/16 11/24/16 Unknown History Active Meds: Active Medications Acetaminophen (Tylenol) 650 mg PO Q4H PRN PRN Reason: Pain MILD(1-3)/Fever >100.5/THAYER Albuterol (Proventil) 2.5 mg IH Q3HRT PRN PRN Reason: Shortness Of Breath Bisacodyl (Dulcolax) 10 mg DC QDAY PRN PRN Reason: Constipation unrelieved by MOM Dextrose (D50w (25gm)) 50 ml IV PRN PRN PRN Reason: Hypoglycemia Enoxaparin Sodium (Lovenox) 30 mg SUB-Q QDAY ROWDY Insulin Aspart (Novolog) 0 units SUB-Q ACHS ROWDY PRN Reason: Protocol Magnesium Hydroxide (Milk Of Magnesia) 30 ml PO Q4H PRN PRN Reason: Constipation Ondansetron HCl (Zofran) 4 mg IV Q8H PRN PRN Reason: N/V unrelieved by Reglan Oxycodone/Acetaminophen (Percocet 5/325) 1 tab PO Q6H PRN PRN Reason: Pain, Moderate (4-6) Review of Systems All systems: negative Physical Examination Vital Signs Resp 16 03/07/17 23:58 General appearance: no acute distress HEENT: Positive: PERRL Neck: Positive: neck supple Cardiac: Positive: Reg Rate and Rhythm Lungs: Positive: Normal Exam Abdomen: Positive: Soft Extremities: Present: edema Results 03/08/17 00:27 03/08/17 00:27 - EKG Interpretation EKG: sinus rhythm Assessment and Plan Chest pain - atypical Elevated troponin, non specific and chronic likely related to renal disease Hypertension Diabetes Hx of Seizure disorder Chronic Renal failure Hx of chronic DVT on aspirin therapy not on anticoagulation d/t prior epistaxis prior CVA with left hemiparesis and aphasia Anemia Her last cardiac workup was in 2011: Normal perfusion persantine thallium. Normal systolic function by echocardiogram. Recommendations: Conservative cardiac management. Patient does not want any further cardiac testing. She insists that her chest pain is heart burn/indigestion related Optimize medical therapy with asa. beta blockers, statin and long acting nitrates
[2017-03-08] MEDS: NOVOLOG SUB-Q SCH ×2 (10:24→13:25)
[2017-03-08] MEDS ORDERED: HALFPRIN EC PO SCH (11:00)
[2017-03-08] MEDS ORDERED: IMDUR PO SCH (11:00)
--- NOTE | 2017-03-08 12:46 | Discharge Summary ---
Providers - Providers Date of Admission: 03/08/17 05:48 Date of discharge: 03/08/17 Attending physician: ISSAC MORALES MD 03/08/17 06:02 Consult to Wound/ET Nurse [CONS] Routine Reason For Exam: wound eval Primary care physician: CAREER INFORMATION SPECIALIST Hospitalization Condition: Stable Disposition: DC/TX-06 HOME UNDER HOME HL Exam - Constitutional Vitals: Temp Pulse Resp BP Pulse Ox 98.6 F 71 7 L 147/79 99 03/08/17 00:15 03/08/17 04:41 03/08/17 04:41 03/08/17 04:41 03/08/17 04:41 Plan Activity: advance as tolerated, fall precautions Diet: low fat Special Instructions: record daily weights, record daily BP diary, record blood sugar diary Additional Instructions: follow with master automotive technician Follow up with: SHANNAN CONRAD MD [Staff Physician] - 7 Days
--- NOTE | 2017-03-08 16:54 | Query- Chest Pain ---
Asuncion Ventura Caroline Date: 03/08/17 Improvement Nurse/CDS:___Kev العلي Phone#:____[phone] Exercise your independent professional judgment when responding to query. Questions asked do not imply a particular answer is desired or expected. We greatly appreciate your clarification on this issue. Clinical Documentation States: 51 year old female was admitted on 03/08/17. The H&P states " 51-year-old woman with a history of hypertension, diabetes, seizure, chronic kidney disease, hyperlipidemia, CVA, obesity comes emergency room complaints of chest pain that started 1 week ago. Pain is in the epigastric area which she describes often sitting on the chest, intermittent in nature lasting for 5 minutes, intensity 6/10, radiating to the left arm, she cannot identify exacerbating or relieving factors. Admits to shortness breath, no nausea vomiting, diaphoresis or palpitation. Patient was admitted in 2016 for chest pain, she was evaluated by cardiology and she was deemed not a candidate for intervention secondary to multiple comorbidities Chest pain with elevated troponin " Please document the etiology of Chest Pain: [ ] Myocardial Infarction [ ] Pneumonia [ ] Mediastinitis [ ] Costochondritis [ ] Pulmonary Embolism [ ] Coronary Artery Disease [ ] GERD [ ] Other: [x ] Comment/Explanation:__unable to determine as patient refused all work up. Chronically elevated troponin noted Present on Admission: [ ] Yes (Y) [ y] Clinically undeterminable (W) [ ] No(N) Please document response in your Progress Notes and/or Discharge Summary and indicate if the condition was present on admission. JOSE
[2017-03-08] MEDS ORDERED: COREG PO SCH (22:00)
--- NOTE | 2017-03-09 07:39 | Vascular Lab Report ---
LOWER EXTREMITY VENOUS DUPLEX: REASON FOR EXAM: Pain and swelling of the lower extremities. COMMENTS ON THE RIGHT: Chronic nonocclusive deep venous thrombosis is noted in the popliteal vein, femoral vein, deep femoral vein and extending into the common femoral and external iliac veins.. The remaining veins visualized are freely compressible without evidence of internal echogenicity. Spontaneous and phasic flow is present proximally. COMMENTS ON THE LEFT: All veins visualized are freely compressible without evidence of internal echogenicity. Flow is spontaneous and phasic throughout. IMPRESSION: Chronic deep venous thrombosis in the right lower extremity
== END 2017-03-08 14:38 | disposition home health service (06) | DRG 313 ==
LOC: ED 23:51 → 4A 03-08 05:48
PROVIDERS: ADMIT Internal Medicine; ATTEND Internal Medicine
DX: R07.9 Chest pain, unspecified (principal); Z68.41 Body mass index [BMI] 40.0-44.9, adult; I82.501 Chronic embolism and thrombosis of unspecified deep veins of right lower extremity; E87.6 Hypokalemia; E66.01 Morbid (severe) obesity due to excess calories; G43.909 Migraine, unspecified, not intractable, without status migrainosus; I12.9 Hypertensive chronic kidney disease with stage 1 through stage 4 chronic kidney disease, or unspecified chronic kidney disease; N18.9 Chronic kidney disease, unspecified; E11.22 Type 2 diabetes mellitus with diabetic chronic kidney disease; X58.XXXA Exposure to other specified factors, initial encounter; T14.8 Other injury of unspecified body region; F17.210 Nicotine dependence, cigarettes, uncomplicated; I69.998 Other sequelae following unspecified cerebrovascular disease; Z82.49 Family history of ischemic heart disease and other diseases of the circulatory system; Y93.89 Activity, other specified; I25.2 Old myocardial infarction; Z79.899 Other long term (current) drug therapy; Z79.82 Long term (current) use of aspirin; Y92.89 Other specified places as the place of occurrence of the external cause
CPT/HCPCS: 36415; 71010; 80048; 80061; 84484; 85025; 85379; 85610; 93005; 93010; 93970; 99285